=== PATIENT | male | born 1980 | race Caucasian/White ===

== ENCOUNTER 2018-08-11 12:03 | Day surgery (SDC) | payer OTHER ==
[~2018-08-11 12:03] MED LIST: NS 1,000 ML IV
[2018-08-11] MEDS ORDERED: PROPOFOL 200 MG/20 ML VIAL As Ordered ×2 (13:22→14:05)
[2018-08-11] MEDS ORDERED: LIDOCAINE 2% INJ 100 MG/5 ML SDV (FOR ANES.) As Ordered (13:22)
== END 2018-08-11 14:30 | disposition home or self-care (01) ==
LOC: M OPP 12:03
DX: R12 Heartburn (principal); K22.8 Other specified diseases of esophagus; K20.8 Other esophagitis; K21.9 Gastro-esophageal reflux disease without esophagitis; F41.9 Anxiety disorder, unspecified; F32.9 Major depressive disorder, single episode, unspecified; Z87.820 Personal history of traumatic brain injury; G43.909 Migraine, unspecified, not intractable, without status migrainosus; F43.10 Post-traumatic stress disorder, unspecified; G47.30 Sleep apnea, unspecified; R06.83 Snoring; F17.210 Nicotine dependence, cigarettes, uncomplicated; Z79.899 Other long term (current) drug therapy
CPT/HCPCS: 43239

== ENCOUNTER 2021-12-31 09:56 | Emergency (ER) | payer OTHER ==
[~2021-12-31] VITALS: Ht 172.7 cm; Wt 86.4 kg
[~2021-12-31 09:56] MED LIST changes: +BUSP10TA PO; +HYDR50TA70 PO; -NS 1,000 ML IV; +OMEP40CA4 PO; +PRAZ2CAP PO; +VENL37TA PO; +WELL75TA PO; +ZOLO50TA PO; +ZOMI5SPR; +ZOMI5TAB3 PO
[2021-12-31 11:39] LABS: BASO # 0.1 10^3/uL (0.0-0.2); BASO % 1.5 % (0.0-1.0); EOS # 0.2 10^3/uL (0.0-0.5); EOS % 3.2 % (0.0-3.0); HEMATOCRIT 48.4 % (42.0-52.0); HEMOGLOBIN 16.5 g/dl (13.5-17.5); LYMPH # 1.7 10^3/uL (1.5-5.0); LYMPH % 25.9 % (24.0-44.0); MEAN CORPUSCULAR HEMOGLOBIN 29.7 pg (27.0-33.0); MEAN CORPUSCULAR HGB CONC 34.1 g/dl (32.0-36.5); MEAN CORPUSCULAR VOLUME 87.2 fl (80.0-96.0); MONO # 0.5 10^3/uL (0.0-0.8); MONO % 7.6 % (2.0-8.0); NEUTROPHILS % 61.3 % (36.0-66.0); PLATELET COUNT, AUTOMATED 237 10^3/uL (150-450); RED BLOOD COUNT 5.55 10^6/uL (4.30-6.10); WHITE BLOOD COUNT 6.5 10^3/uL (4.0-10.0)
[2021-12-31 11:50] LABS: INR 0.94
[2021-12-31 12:11] LABS: CK-MB VALUE MASS < 1.0 NG/ML (<3.6); CPK CREATINE PHOSPHOKINASE 68 U/L (39-308); MB/CK RELATIVE INDEX 1.47 (< OR =4)
[2021-12-31 12:19] LABS: ALBUMIN 4.3 GM/DL (3.2-5.2); ALT/SGPT 101 U/L (12-78); BILIRUBIN,DIRECT 0.1 MG/DL (0.0-0.2); BILIRUBIN,TOTAL 0.5 MG/DL (0.2-1.0); BLOOD UREA NITROGEN 12 MG/DL (7-18); CALCIUM LEVEL 9.4 MG/DL (8.5-10.1); CARBON DIOXIDE LEVEL 30 MEQ/L (21-32); CHLORIDE LEVEL 106 MEQ/L (98-107); CREATININE FOR GFR 1.04 MG/DL (0.70-1.30); GLOMERULAR FILTRATION RATE > 60.0 (>60); GLUCOSE, FASTING 102 MG/DL (70-100); LIPASE 104 U/L (73-393); POTASSIUM SERUM 4.4 MEQ/L (3.5-5.1); SODIUM LEVEL 141 MEQ/L (136-145); TOTAL PROTEIN 6.9 GM/DL (6.4-8.2)
[2021-12-31] MEDS ORDERED: ASPIRIN 81 MG CHEW TABLET PO ONE (12:20)
[2021-12-31] MEDS ORDERED: ISOVUE-370 76% 100ML VIAL As Ordered ONE (12:33)
[2021-12-31 14:34] LABS: CK-MB VALUE MASS < 1.0 NG/ML (<3.6); CPK CREATINE PHOSPHOKINASE 62 U/L (39-308); MB/CK RELATIVE INDEX 1.61 (< OR =4)
[2021-12-31 15:30] VITALS: BP 127/76
== END 2021-12-31 15:41 | disposition home or self-care (01) ==
LOC: M ED 09:56
DX: R07.9 Chest pain, unspecified (principal); R91.8 Other nonspecific abnormal finding of lung field; I45.19 Other right bundle-branch block; K21.9 Gastro-esophageal reflux disease without esophagitis; F43.10 Post-traumatic stress disorder, unspecified; F17.200 Nicotine dependence, unspecified, uncomplicated; Z79.899 Other long term (current) drug therapy
CPT/HCPCS: 71045; 71275; 80048; 80076; 82550; 82553; 83690; 84443; 84484; 85025; 85610; 85730; 93005; 93041; 99285; Q9967

== ENCOUNTER 2022-09-15 18:19 | Inpatient (IN) | payer OTHER ==
[~2022-09-15] VITALS: Ht 172.7 cm; Wt 91.6 kg
[2022-09-15] MEDS ORDERED: NS 1,700 ML in IV 1 EA IV ONE (19:30)
[2022-09-15] MEDS ORDERED: MORPHINE 4 MG/ML 1ML VIAL IV ONE (19:30)
[2022-09-15] MEDS ORDERED: NS 1,000 ML IV ONE (19:30)
[2022-09-15] MEDS ORDERED: PIPERACILLIN/TAZOBACTAM SOD 4.5 GM in D5W MINI-BAG PLUS 50 ML IV ONE (19:30)
[2022-09-15] MEDS ORDERED: ONDANSETRON 4MG 2ML VIAL IV ONE (19:30)
[2022-09-15] MEDS ORDERED: ACETAMINOPHEN 325 MG TAB PO ONE (19:35)
[2022-09-15 19:55] LABS: BASO # 0.1 10^3/uL (0.0-0.2); BASO % 0.4 % (0.0-1.0); EOS # 0.1 10^3/uL (0.0-0.5); EOS % 0.3 % (0.0-3.0); HEMATOCRIT 48.7 % (42.0-52.0); HEMOGLOBIN 17.1 g/dl (13.5-17.5); LYMPH # 1.3 10^3/uL (1.5-5.0); LYMPH % 7.4 % (24.0-44.0); MEAN CORPUSCULAR HEMOGLOBIN 30.5 pg (27.0-33.0); MEAN CORPUSCULAR HGB CONC 35.1 g/dl (32.0-36.5); MEAN CORPUSCULAR VOLUME 86.8 fl (80.0-96.0); MONO % 9.1 % (2.0-8.0); NEUTROPHILS # 14.1 10^3/uL (1.5-8.5); NEUTROPHILS % 82.5 % (36.0-66.0); PLATELET COUNT, AUTOMATED 253 10^3/uL (150-450); RED BLOOD COUNT 5.61 10^6/uL (4.30-6.10); WHITE BLOOD COUNT 17.2 10^3/uL (4.0-10.0)
[2022-09-15 20:10] LABS: MONO # 1.6 10^3/uL (0.0-0.8)
[2022-09-15 20:24] LABS: ALBUMIN 4.2 G/DL (3.2-5.2)
[2022-09-15] MEDS ORDERED: ISOVUE-370 76% 100ML VIAL As Ordered ONE (20:30)
[2022-09-15 20:31] LABS: BILIRUBIN,DIRECT 0.4 MG/DL (<0.4)
[2022-09-15 20:32] LABS: BILIRUBIN,TOTAL 1.3 MG/DL (0.3-1.2); TOTAL PROTEIN 7.4 G/DL (5.7-8.2)
[2022-09-15 20:34] LABS: RSV AMPLIFICATION NEGATIVE (NEGATIVE)
[2022-09-15] MEDS ORDERED: ACETAMINOPHEN TAB 650MG DOSE (2X325MG) PO PRN (21:45)
[2022-09-15] MEDS ORDERED: KETOROLAC 30 MG/ML 1ML VIAL IV PRN (21:45)
[2022-09-15] MEDS ORDERED: MORPHINE 2 MG/ML 1ML VIAL IV PRN ×2 (21:45→22:00)
[2022-09-15] MEDS ORDERED: ONDANSETRON 4MG 2ML VIAL IV PRN (21:45)
[2022-09-15] MEDS ORDERED: PRAZ1CAP46 PO (22:25)
[2022-09-15] MEDS ORDERED: HOME MED LIST COMPLETE! XX SCH (22:25)
[2022-09-15] MEDS ORDERED: MIRT-10 PO (22:25)
[2022-09-15] MEDS: NS 1,000 ML IV SCH (23:21)
[2022-09-15] MEDS: NORCO, ANEXSIA 5/325MG TABLET (HYDROcodone/ACETAMINOPHEN) PO PRN ×2 (23:56)
[2022-09-16 03:30] VITALS: BP 115/71
[2022-09-16] MEDS: PIPERACILLIN/TAZOBACTAM SOD 3.375 GM in D5W MINI-BAG PLUS 50 ML IV SCH ×4 (04:10→20:25)
[2022-09-16 06:00] VITALS: BP 108/69
[2022-09-16 06:57] LABS: HEMATOCRIT 40.5 % (42.0-52.0); MEAN CORPUSCULAR HEMOGLOBIN 30.2 pg (27.0-33.0); MEAN CORPUSCULAR HGB CONC 34.1 g/dl (32.0-36.5); MEAN CORPUSCULAR VOLUME 88.6 fl (80.0-96.0); PLATELET COUNT, AUTOMATED 196 10^3/uL (150-450); RED BLOOD COUNT 4.57 10^6/uL (4.30-6.10); WHITE BLOOD COUNT 11.8 10^3/uL (4.0-10.0)
[2022-09-16 07:04] LABS: HEMOGLOBIN 13.8 g/dl (13.5-17.5)
[2022-09-16 07:12] LABS: CARBON DIOXIDE LEVEL 26 MMOL/L (20-31); CHLORIDE LEVEL 105 MMOL/L (98-107); POTASSIUM SERUM 3.8 MMOL/L (3.5-5.1); SODIUM LEVEL 138 MMOL/L (136-145)
[2022-09-16 07:18] LABS: BLOOD UREA NITROGEN 11 MG/DL (9-23); CALCIUM LEVEL 7.6 MG/DL (8.5-10.1); GLUCOSE, FASTING 97 MG/DL (60-100)
[2022-09-16 07:20] LABS: CREATININE FOR GFR 1.04 MG/DL (0.70-1.30); GLOMERULAR FILTRATION RATE > 60.0 (>60)
[2022-09-16] MEDS: PANTOPRAZOLE 40MG VIAL IV SCH (08:00)
[2022-09-16] MEDS: NS 1,000 ML IV SCH ×2 (08:02→15:43)
[2022-09-16] MEDS: NORCO, ANEXSIA 5/325MG TABLET (HYDROcodone/ACETAMINOPHEN) PO PRN ×2 (08:08→20:25)
[2022-09-16 14:00] VITALS: BP 149/88
[2022-09-16 20:31] VITALS: BP 121/84
[2022-09-17] MEDS: PIPERACILLIN/TAZOBACTAM SOD 3.375 GM in D5W MINI-BAG PLUS 50 ML IV SCH ×4 (02:53→20:18)
[2022-09-17] MEDS: NS 1,000 ML IV SCH ×4 (02:53→20:18)
[2022-09-17 05:56] VITALS: BP 110/72
[2022-09-17 07:56] VITALS: BP 114/75
[2022-09-17 08:31] LABS: HEMATOCRIT 40.3 % (42.0-52.0); HEMOGLOBIN 13.5 g/dl (13.5-17.5); MEAN CORPUSCULAR HEMOGLOBIN 29.9 pg (27.0-33.0); MEAN CORPUSCULAR HGB CONC 33.5 g/dl (32.0-36.5); MEAN CORPUSCULAR VOLUME 89.4 fl (80.0-96.0); PLATELET COUNT, AUTOMATED 208 10^3/uL (150-450); RED BLOOD COUNT 4.51 10^6/uL (4.30-6.10); WHITE BLOOD COUNT 7.2 10^3/uL (4.0-10.0)
[2022-09-17] MEDS: PANTOPRAZOLE 40MG VIAL IV SCH (08:58)
[2022-09-17 08:59] LABS: CHLORIDE LEVEL 106 MMOL/L (98-107); POTASSIUM SERUM 4.3 MMOL/L (3.5-5.1); SODIUM LEVEL 139 MMOL/L (136-145)
[2022-09-17 09:00] LABS: CARBON DIOXIDE LEVEL 26 MMOL/L (20-31)
[2022-09-17] MEDS: NORCO, ANEXSIA 5/325MG TABLET (HYDROcodone/ACETAMINOPHEN) PO PRN ×2 (09:01→21:09)
[2022-09-17 09:05] LABS: BLOOD UREA NITROGEN 9 MG/DL (9-23)
[2022-09-17 09:06] LABS: GLUCOSE, FASTING 99 MG/DL (60-100)
[2022-09-17 09:08] LABS: CREATININE FOR GFR 1.01 MG/DL (0.70-1.30); GLOMERULAR FILTRATION RATE > 60.0 (>60)
[2022-09-17 14:00] VITALS: BP 125/72
[2022-09-17 22:00] VITALS: BP 130/79
[2022-09-18] MEDS: PIPERACILLIN/TAZOBACTAM SOD 3.375 GM in D5W MINI-BAG PLUS 50 ML IV SCH ×2 (02:52→08:39)
[2022-09-18] MEDS: NORCO, ANEXSIA 5/325MG TABLET (HYDROcodone/ACETAMINOPHEN) PO PRN (03:12)
[2022-09-18] MEDS: NS 1,000 ML IV SCH (05:39)
[2022-09-18 06:19] VITALS: BP 104/72
[2022-09-18 07:30] LABS: HEMATOCRIT 38.5 % (42.0-52.0); HEMOGLOBIN 13.1 g/dl (13.5-17.5); MEAN CORPUSCULAR HEMOGLOBIN 30.2 pg (27.0-33.0); MEAN CORPUSCULAR VOLUME 88.7 fl (80.0-96.0); PLATELET COUNT, AUTOMATED 220 10^3/uL (150-450); RED BLOOD COUNT 4.34 10^6/uL (4.30-6.10)
[2022-09-18 07:57] LABS: BLOOD UREA NITROGEN 7 MG/DL (9-23); CALCIUM LEVEL 8.2 MG/DL (8.5-10.1); CARBON DIOXIDE LEVEL 25 MMOL/L (20-31); CHLORIDE LEVEL 108 MMOL/L (98-107); CREATININE FOR GFR 0.97 MG/DL (0.70-1.30); GLOMERULAR FILTRATION RATE > 60.0 (>60); GLUCOSE, FASTING 98 MG/DL (60-100); POTASSIUM SERUM 4.4 MMOL/L (3.5-5.1); SODIUM LEVEL 141 MMOL/L (136-145)
[2022-09-18 08:15] VITALS: BP 121/72
[2022-09-18] MEDS: PANTOPRAZOLE 40MG VIAL IV SCH (08:39)
[2022-09-18] MEDS ORDERED: METR-265 PO (10:49)
[2022-09-18] MEDS ORDERED: CIPR-249 PO (10:49)
== END 2022-09-18 11:00 | disposition home or self-care (01) | DRG 392 ==
LOC: M ED 18:19 → M ED INP 21:45 → M MS5PR 09-16 03:35
PROVIDERS: ADMIT Surgery; ATTEND Surgery
DX: K57.20 Diverticulitis of large intestine with perforation and abscess without bleeding (principal); F43.10 Post-traumatic stress disorder, unspecified; F32.A Depression, unspecified; F41.9 Anxiety disorder, unspecified

== ENCOUNTER → 2022-10-16 | Outpatient (CLI) | payer OTHER ==
[~2022-10-16] MED LIST changes: +CIPR-249 PO; +METR-265 PO; +MIRT-10 PO; +PRAZ1CAP46 PO
== END ==
LOC: M LABSMTC 10:36
PROVIDERS: ATTEND Anesthesiology
DX: Z01.812 Encounter for preprocedural laboratory examination (principal); Z11.52 Encounter for screening for COVID-19

== ENCOUNTER 2022-10-17 10:22 | Day surgery (SDC) | payer OTHER ==
[~2022-10-17] VITALS: Ht 172.7 cm; Wt 91.2 kg
[~2022-10-17 10:22] MED LIST changes: +NS 1,000 ML IV ONE
[2022-10-17] MEDS ORDERED: propofoL 200 MG/20 ML VIAL As Ordered ONE (10:43)
[2022-10-17] MEDS ORDERED: LIDOCAINE 2% 100MG/5ML SDV (FOR ANES.) As Ordered ONE (11:28)
[2022-10-17 12:18] VITALS: BP 120/74
== END 2022-10-17 12:37 | disposition home or self-care (01) ==
LOC: M OPP 10:22
PROVIDERS: ATTEND Surgery
DX: K57.30 Diverticulosis of large intestine without perforation or abscess without bleeding (principal); K21.9 Gastro-esophageal reflux disease without esophagitis; F41.9 Anxiety disorder, unspecified; F32.A Depression, unspecified; G43.909 Migraine, unspecified, not intractable, without status migrainosus; F43.10 Post-traumatic stress disorder, unspecified; G47.30 Sleep apnea, unspecified; Z87.820 Personal history of traumatic brain injury; Z87.891 Personal history of nicotine dependence; Z79.899 Other long term (current) drug therapy

== ENCOUNTER 2023-01-30 10:32 | Emergency (ER) | payer OTHER ==
[~2023-01-30] VITALS: Ht 172.7 cm; Wt 86.4 kg
[~2023-01-30 10:32] MED LIST changes: -NS 1,000 ML IV ONE
[2023-01-30] MEDS ORDERED: ONDANSETRON 4MG 2ML VIAL IV ONE ×2 (11:40→11:45)
[2023-01-30] MEDS ORDERED: NS 1,000 ML IV ONE (11:40)
[2023-01-30] MEDS ORDERED: MORPHINE 4 MG/ML 1ML VIAL IV ONE ×2 (11:45→13:20)
[2023-01-30] MEDS ORDERED: ISOVUE-370 76% 100ML VIAL As Ordered ONE (12:06)
[2023-01-30 12:09] LABS: HEMATOCRIT 45.9 % (42.0-52.0); HEMOGLOBIN 15.9 g/dl (13.5-17.5); MEAN CORPUSCULAR HEMOGLOBIN 30.3 pg (27.0-33.0); MEAN CORPUSCULAR HGB CONC 34.6 g/dl (32.0-36.5); MEAN CORPUSCULAR VOLUME 87.4 fl (80.0-96.0); PLATELET COUNT, AUTOMATED 221 10^3/uL (150-450); RED BLOOD COUNT 5.25 10^6/uL (4.30-6.10); WHITE BLOOD COUNT 10.2 10^3/uL (4.0-10.0)
[2023-01-30 12:10] LABS: BASO # 0.1 10^3/uL (0.0-0.2); BASO % 0.7 % (0.0-1.0); EOS # 0.2 10^3/uL (0.0-0.5); EOS % 2.3 % (0.0-3.0); LYMPH # 1.7 10^3/uL (1.5-5.0); LYMPH % 16.3 % (24.0-44.0); MONO # 0.8 10^3/uL (0.0-0.8); MONO % 8.1 % (2.0-8.0); NEUTROPHILS # 7.4 10^3/uL (1.5-8.5); NEUTROPHILS % 72.4 % (36.0-66.0)
[2023-01-30 12:38] LABS: BILIRUBIN,DIRECT 0.3 MG/DL (<0.4); BILIRUBIN,TOTAL 0.8 MG/DL (0.3-1.2); TOTAL PROTEIN 6.6 G/DL (5.7-8.2)
[2023-01-30 12:59] LABS: RSV AMPLIFICATION NEGATIVE (NEGATIVE)
[2023-01-30] MEDS ORDERED: PIPERACILLIN/TAZOBACTAM SOD 3.375 GM in D5W MINI-BAG PLUS 50 ML IV ONE (13:20)
[2023-01-30] MEDS ORDERED: AMOX875T2 PO (14:28)
[2023-01-30 14:40] VITALS: BP 130/91
== END 2023-01-30 14:40 | disposition home or self-care (01) ==
LOC: M ED 10:32
DX: K57.32 Diverticulitis of large intestine without perforation or abscess without bleeding (principal); K31.89 Other diseases of stomach and duodenum; K21.9 Gastro-esophageal reflux disease without esophagitis; F41.9 Anxiety disorder, unspecified; F32.9 Major depressive disorder, single episode, unspecified; G47.30 Sleep apnea, unspecified; F17.290 Nicotine dependence, other tobacco product, uncomplicated; Z87.891 Personal history of nicotine dependence; Z79.899 Other long term (current) drug therapy
CPT/HCPCS: 74177; 80047; 80076; 81001; 82150; 83605; 83690; 85025; 87040; 87631; 96361; 96365; 96375; 96376; 99284; J2405; J2543; Q9967

== ENCOUNTER 2023-01-30 23:55 | Emergency (ER) | payer OTHER ==
[~2023-01-30] VITALS: Ht 172.7 cm; Wt 93.6 kg
[~2023-01-30 23:55] MED LIST changes: +AMOX875T2 PO
[2023-01-30 23:56] VITALS: BP 126/80
== END 2023-01-31 03:17 | disposition left against medical advice (07) ==
LOC: M ED 23:55
DX: Z53.21 Procedure and treatment not carried out due to patient leaving prior to being seen by health care provider (principal)

== ENCOUNTER → 2023-06-05 | Outpatient (CLI) | payer OTHER ==
[~2023-06-05] MED LIST changes: +ISOVUE-370 76% 100ML VIAL As Ordered ONE
== END ==
LOC: M RAD 17:20
PROVIDERS: ATTEND Surgery Trauma Surgery
DX: K57.30 Diverticulosis of large intestine without perforation or abscess without bleeding (principal); M43.06 Spondylolysis, lumbar region
CPT/HCPCS: 74177; Q9967

== ENCOUNTER → 2023-07-21 | Outpatient (CLI) | payer OTHER ==
[~2023-07-21] MED LIST changes: +ATOR40TA75 PO; +IBUP80TA PO; -ISOVUE-370 76% 100ML VIAL As Ordered ONE; +LISI40TA4 PO
== END ==
LOC: M WUC 09:56
PROVIDERS: ATTEND Nurse Practitioner Family
DX: M79.672 Pain in left foot (principal)

== ENCOUNTER 2023-07-23 21:57 | Emergency (ER) | payer OTHER ==
[~2023-07-23] VITALS: Ht 172.7 cm; Wt 93.9 kg
[~2023-07-23 21:57] MED LIST changes: -ATOR40TA75 PO; -IBUP80TA PO; -LISI40TA4 PO
[2023-07-23] MEDS ORDERED: IBUP80TA PO (22:10)
[2023-07-23] MEDS ORDERED: ATOR40TA75 PO (22:10)
[2023-07-23] MEDS ORDERED: LISI40TA4 PO (22:10)
[2023-07-24 02:44] VITALS: BP 121/75; TEMP 97.2; O2SAT 99
== END 2023-07-24 03:37 | disposition left against medical advice (07) ==
LOC: M ED 21:57
DX: Z53.21 Procedure and treatment not carried out due to patient leaving prior to being seen by health care provider (principal)